=== PATIENT | female | born 1995 | race Hispanic/Latino ===

== ENCOUNTER 2020-08-07 10:42 | Emergency (ER) | payer SELFPAY ==
[2020-08-07] MEDS ORDERED: Acetaminophen 500 MG TAB ONE (11:23)
[2020-08-07 11:36] LABS: #Basophils 0.1 thou/uL (0.0-0.2); #Eosinphils 0.1 thou/uL (0.0-0.7); #Lymphocytes 1.4 thou/uL (1.20-3.40); #Monocytes 0.6 thou/uL (0.11-0.59); %Eosinophils 1.3 % (0.0-10.0); %Lymphocytes 13.6 % (21.0-51.0); %Monocytes 5.7 % (0.0-10.0); %Neutrophils 78.4 % (42.0-75.0); Hemoglobin 14.9 g/dL (12.0-16.0); Mean Corpuscular HGB CONC 33.6 g/dL (32.0-36.0); Mean Corpuscular Volume 89.3 fL (78.0-98.0); Mean Platelet Volume 8.4 fL (7.4-10.4); Platelet Count 309 thou/uL (130-400); RBC Distribution Width 11.7 % (11.5-14.5); Red Blood Cell (RBC) Count 4.96 mill/uL (4.20-5.40); White Blood Cell (WBC) Count 10.2 thou/uL (4.8-10.8)
--- NOTE | 2020-08-07 12:05 | ULT ---
FIRST TRIMESTER OBSTETRICAL ULTRASOUND INDICATION: History of with vaginal bleeding TECHNIQUE: Grayscale, M-mode Doppler, color Doppler and spectral Doppler images were obtained. Marissa virgie is focused on the clinical indication. Transabdominal and transvaginal exam was performed. COMPARISON: No relevant prior studies available. FINDINGS: Uterus: The uterus measured 8.8 x 4.0 x 5.9cm.The endometrial stripe measures 2 cm. Intrauterine gestation: None. Yolk Sac:Not identified Pole :Not identified. heart rate: Not applicable . Subchorionic Hemorrhage: Not applicable. BIOMETRY: The crown-rump length: Not applicable. The mean sac diameter: Not applicable . Clinical age by dates: 8 weeks and 1 day with estimated due date of March 18, 2021. Ovaries: RIGHT OVARY: 3.4 x 2.9 x 3.5 cm. Mass: None. Flow: Normal LEFT OVARY: Not visualized CUL-DE-SAC: No free fluid IMPRESSION: 1. Nonvisualization of an intrauterine gestation. Findings are consistent with a of undeter mined location. Findings may reflect missed , early or ectopic . No free fluid is identified. Continued clinical and sonographic follow-up is recommended.
[2020-08-07] MEDS ORDERED: Ketorolac Tromethamine 30 MG/ML VIAL ONE (12:22)
[2020-08-07] MEDS ORDERED: Morphine 4 MG/ML VIAL ONE ×2 (12:23→14:00)
[2020-08-07] MEDS ORDERED: Ondansetron PF 4 MG/2 ML Vial ONE (12:23)
[2020-08-07 14:36] LABS: Bacteria/HPF None Seen HPF (None Seen); Bilirubin Negative (Negative); Blood, Urine 1+ (Negative); Clarity Clear (Clear); Glucose, Urine (Dipstick) Normal (Negative); Ketone, Urine 10 mg/dL (Negative); Leukocyte Negative Leu/uL (Negative); Nitrite Negative (Negative); Protein, Urine (Dipstick) Negative (Neg-Trace); Squamous Epithelial 0-3 HPF (0-3); Urobilinogen Normal mg/dL (Less than 2); WBC/HPF 0-3 HPF (0-3); pH, Urine 7.5 (5.0-9.0)
== END 2020-08-07 14:41 | disposition home or self-care (01) ==
LOC: ERS 10:42
DX: O03.9 Complete or unspecified spontaneous abortion without complication (principal)
CPT/HCPCS: 36415; 76856; 81003; 81015; 84702; 85025; 86850; 86900; 86901; 90384; 94760; 96372; 96374; 96375; 96376; J1885; J2270; J2405